=== PATIENT | female | born 1985 | race Caucasian/White ===

== ENCOUNTER 2019-10-04 08:33 | Emergency (ER) | payer MEDICAID ==
[~2019-10-04] VITALS: Ht 170.2 cm; Wt 64.4 kg
[2019-10-04 08:35] VITALS: BP 130/80
--- NOTE | 2019-10-04 08:37 | NUR ---
PT TAKEN TO BED 2.
--- NOTE | 2019-10-04 08:50 | NUR ---
C/O EPIGASTRIC PAIN 7/10 RADIATING TO L SIDE OF NECK ACCOMPANIED BY NAUSEA AND A HEADACHE X2 DAYS. DENIES VOMITING OR DIARRHEA. PUPILS PERRL. DENIES INJURY. PT ALERT AND AWAKE, AMBULATORY WITH STEADY GAIT. VS STABLE. BED IS DOWN, LOCKED, BED RAIL X 1. HX: NONE RX: NONE
--- NOTE | 2019-10-04 08:50 | NUR ---
dr kaba at bedside.
--- NOTE | 2019-10-04 08:57 | NUR ---
PT AMBULATED TO RESTROOM WITH STEADY GAIT
--- NOTE | 2019-10-04 09:27 | NUR ---
EKG SHOWS SR HR AT 66, GIVEN TO DR FIELD
[2019-10-04 09:42] VITALS: BP 120/75
--- NOTE | 2019-10-04 09:42 | NUR ---
Patient discharged with v/s stable. Written and verbal after care instructions given and explained regarding GERD . Diet instruction given to pt in malay. Patient verbalized understanding. Ambulatory with steady gait. All questions addressed prior to discharge. Advised to follow up with PMD.
== END 2019-10-04 09:42 | disposition home or self-care (01) ==
LOC: MED 08:33
DX: K21.9 Gastro-esophageal reflux disease without esophagitis (principal); R03.0 Elevated blood-pressure reading, without diagnosis of hypertension
CPT/HCPCS: 93005; 99283

== ENCOUNTER 2022-08-22 12:12 | Emergency (ER) | payer MEDICAID ==
[~2022-08-22] VITALS: Ht 165.1 cm; Wt 65.8 kg
[2022-08-22 12:58] VITALS: BP 128/93
[2022-08-22] MEDS ORDERED: diphenhydrAMINE 50 MG/ML VIAL IM ONE (14:05)
[2022-08-22] MEDS ORDERED: EPINEPHrine 1 MG/ML AMP IM ONE (14:05)
--- NOTE | 2022-08-22 14:08 | NUR ---
PATIENT PRESENTS TO ED AFTER 5 DAYS OF ITCHING AND GENERALIZED RASH. PATIETN IS ALERT AND ORIENTED X 4, NO S/S OF ACUTE DISTRESS. AIRWAY IS PATENT, LUNGS ARE CLEAR.
[2022-08-22] MEDS ORDERED: PRED50TA2 PO (15:39)
[2022-08-22 15:56] VITALS: BP 122/89
--- NOTE | 2022-08-22 15:57 | NUR ---
DI AMBULATED OUT OF ED WITH NO INCIDENT. PATIENT VERBALIZED UNDERSTANDING OF HEALTH TEACHINGS.
== END 2022-08-22 15:56 | disposition home or self-care (01) ==
LOC: MED 12:12
DX: L50.9 Urticaria, unspecified (principal)
CPT/HCPCS: 96372; 99284; J0171; J1200